=== PATIENT | male | born 1945 | race Caucasian/White ===

== ENCOUNTER → 2017-01-08 | Outpatient (CLI) | payer MEDICARE, OTHER | END | disposition home or self-care (01) | LOC: CDC 08:57 | DX: R00.1 Bradycardia, unspecified (principal) | CPT/HCPCS: 93000 ==

== ENCOUNTER 2017-01-14 05:30 | Day surgery (SDC) | payer OTHER ==
[~2017-01-14] VITALS: Ht 172.7 cm; Wt 66.8 kg
[2017-01-14 05:52] VITALS: BP 142/83
[2017-01-14 10:24] VITALS: BP 150/77
[2017-01-14 11:33] VITALS: BP 154/83
== END 2017-01-14 11:40 | disposition home or self-care (01) ==
LOC: SDC 05:30
DX: C32.0 Malignant neoplasm of glottis (principal); Z77.22 Contact with and (suspected) exposure to environmental tobacco smoke (acute) (chronic)
CPT/HCPCS: 88305; 88342 TC; J0330; J1100; J2250; J2405; J3010